=== PATIENT | male | born 1995 ===

== ENCOUNTER → 2017-10-20 | Outpatient (CLI) | payer OTHER | END | disposition home or self-care (01) | LOC: PPHC LAB 12:22 → PPH VACUNA 12:22 | DX: Z02.0 Encounter for examination for admission to educational institution (principal) ==

== ENCOUNTER → 2017-10-27 | Outpatient (CLI) | payer OTHER | END | disposition home or self-care (01) | LOC: PPH VACUNA 14:57 | DX: Z23 Encounter for immunization (principal) ==